=== PATIENT | male | born 1965 | race Caucasian/White ===

== ENCOUNTER 2020-03-10 13:50 | Emergency (ER) | payer MEDICAID, OTHER ==
[~2020-03-10] VITALS: Ht 160 cm; Wt 65.8 kg
[2020-03-10] MEDS ORDERED: IV NORMAL SALINE 1000 ML BAG IV ONE ×2 (14:15→16:00)
[2020-03-10] MEDS ORDERED: INSULIN REGULAR, HUMAN 300 UNIT/3 ML VIAL SQ ONE (14:45)
[2020-03-10 14:57] LABS: BASOPHILS % (AUTO) 0.2 % (0.0-2.0); EOSINOPHILS % (AUTO) 0.1 % (0.0-7.0); HEMOGLOBIN 18.4 g/dL (12.5-16.3); LYMPHOCYTES # (AUTO) 1.1 K/uL (20.0-40.0); LYMPHOCYTES % (AUTO) 5.4 % (20.5-51.5); MEAN CORPUSCULAR HGB CONC 28 g/dL (32.5-36.3); MEAN CORPUSCULAR VOLUME 101.2 fL (73.0-96.2); MONOCYTES # (AUTO) 0.2 K/uL (2.0-10.0); NEUTROPHILS # (AUTO) 19.5 K/uL (1.8-8.9); NEUTROPHILS % (AUTO) 93.3 % (38.5-71.5); PLATELET COUNT (AUTO) 200 K/uL (152-348); WHITE BLOOD COUNT (AUTO) 20.9 K/uL (3.6-10.2)
[2020-03-10 14:59] LABS: RED BLOOD CELL COUNT(AUTO) 6.56 MIL/uL (4.06-5.63)
[2020-03-10 15:02] LABS: HEMATOCRIT 64.4 % (36.7-47.1)
[2020-03-10] MEDS ORDERED: INSULIN REGULAR, HUMAN 300 UNIT/3 ML VIAL ONE (15:02)
--- NOTE | 2020-03-10 15:11 | NUR ---
PT IS IN ROOM #5. DR KRISHNAN EVALUATED THE PT.
[2020-03-10 15:12] LABS: BAND % (MANUAL) 26 % (0-10); LYMPHOCYTES % (MANUAL) 7 % (20-40); METAMYELOCYTES % 3 % (0-1); MONOCYTES % (MANUAL) 10 % (2-10); NEUTROPHILS % (MANUAL) 54 % (42-75)
--- NOTE | 2020-03-10 15:21 | NUR ---
PT BIB RA [facility] FROM [facility] C/O HYPERGLYCEMIA.PT A/OX3, NO NEURO DEFICIT NOTED.
[2020-03-10 15:38] LABS: CHLORIDE 90 mmol/L (98-107)
[2020-03-10 15:39] LABS: BILIRUBIN,TOTAL 0.7 mg/dL (0.2-1.0); CARBON DIOXIDE 9 mmol/L (21-32); CREATININE 1.6 mg/dL (0.6-1.3); GLUCOSE 150 mg/dL (74-106); UREA NITROGEN, BLOOD 57 mg/dL (7-18)
[2020-03-10 15:40] LABS: ALKALINE PHOSPHATASE 97 U/L (50-136); BILIRUBIN,DIRECT 0.2 mg/dL (0.0-0.2); LIPASE 480 U/L (73-393); TOTAL PROTEIN, SERUM 10.2 g/dL (6.4-8.2)
[2020-03-10 16:05] LABS: ABG BASE EXCESS -11.1 mmol/L; ABG HCO3 11.3 mmol/L; ABG PCO2 20.2 mmHg (35.0-45.0); ABG PH 7.367 (7.350-7.450); ABG PO2 94.9 mmHg (75.0-100.0); ABG SITE LEFT BRACHIAL; MetHb 0.5 % (0.0-1.5); O2Hb 96.2 % (94.0-97.0); VENT MODE ROOM AIR
--- NOTE | 2020-03-10 16:20 | NUR ---
Pt pulled out his IV.site dressed reinserted iv to Left hand, dorsal g20 noted r hand pallor and cool to touch. pt unable to move fingers of r hand, noted no radial pulse to r hand. ERMD aware MALGORZATA (vascular) at bedside
[2020-03-10] MEDS ORDERED: HEPARIN SODIUM,PORCINE 5,000 UNITS/ML VIAL IV ONE (16:45)
--- NOTE | 2020-03-10 17:00 | NUR ---
CALLED [facility] TO TRANSFER PT FOR VASCULAR .
[2020-03-10 17:03] LABS: CREATININE 1.3 mg/dL (0.6-1.3); POTASSIUM 4.7 mmol/L (3.5-5.1)
[2020-03-10] MEDS ORDERED: HEPARIN SODIUM,PORCINE 5,000 UNITS/ML VIAL ONE (17:07)
[2020-03-10] MEDS ORDERED: INSULIN REGULAR, HUMAN 100 UNIT in IV NORMAL SALINE 100 ML IV ONE ×2 (17:15)
[2020-03-10 17:23] LABS: ALANINE AMINOTRANSFERASE 23 U/L (16-63); ASPARTATE AMINOTRANSFERASE 107 U/L (15-37); CREATINE KINASE, TOTAL 4218 U/L (39-308); LACTATE DEHYDROGENASE 422 U/L (85-227)
[2020-03-10 17:33] LABS: FERRITIN 1551 ng/mL (26-388)
[2020-03-10] MEDS ORDERED: INSULIN REGULAR, HUMAN 100 UNITS in IV NORMAL SALINE 100 ML IV ONE ×2 (17:45)
--- NOTE | 2020-03-10 19:00 | NUR ---
[facility] Addendum: 03/10/20 at 1905 by HORACIO declined [place] (ICU ) at capacity pending call back from [facility]
--- NOTE | 2020-03-10 19:14 | NUR ---
faxex facesheet and imaging to [facility] [phone] Attn Vega
[2020-03-10] MEDS: IV 0.9% SODIUM CHLORID+ 20 KCL 1,000 ML IV PRN ×2 (19:15→20:21)
[2020-03-10] MEDS ORDERED: HEPARIN/D5W DRIP 500 ML IV ONE (19:30)
--- NOTE | 2020-03-10 19:35 | NUR ---
PT PULLED OUT IV FOR THE 3RD TIME . STOPPED ALL DRIPS.
--- NOTE | 2020-03-10 19:45 | NUR ---
SPOKE WITH AMBULANCE TICKET NUMBER [id number] PICKUP TIME .
[2020-03-10] MEDS ORDERED: HEPARIN/D5W DRIP 500 ML ONE (19:47)
--- NOTE | 2020-03-10 20:08 | NUR ---
[employer] FROM [facility] CALLED RECEIVED FAX SAID NO BED AVAILABLE.
--- NOTE | 2020-03-10 20:31 | NUR ---
PT BEING TRANSFERRED TO [facility] BY PARTHA.
--- NOTE | 2020-03-10 20:36 | NUR ---
GAVE REPORT TO FELTON FROM [facility] ICU. BED ASSIGNMENT ROOM 259.
== END 2020-03-10 20:30 | disposition short-term general hospital (02) ==
LOC: ER 13:50
DX: I74.2 Embolism and thrombosis of arteries of the upper extremities (principal); E11.10 Type 2 diabetes mellitus with ketoacidosis without coma; R79.89 Other specified abnormal findings of blood chemistry; I82.621 Acute embolism and thrombosis of deep veins of right upper extremity; E87.5 Hyperkalemia; D72.829 Elevated white blood cell count, unspecified; Z79.4 Long term (current) use of insulin; U07.1 COVID-19
CPT/HCPCS: 36415; 36600; 71045; 73130; 80048 ×2; 80076; 82550; 82728; 82962 ×2; 83605; 83615; 83690; 84450; 84460; 84484; 85007; 85025; 85730; 87040 ×2; 93005; 93931; 96361 ×2; 96372; 96374; 96375; 99291; J1644 ×2; J1815; 70030-TC; 86140; A4663; C1758; J3490; J7030